=== PATIENT | male | born 1945 | race Caucasian/White ===

== ENCOUNTER → 2018-07-03 07:49 | Outpatient (CLI) | payer MEDICARE, SELFPAY ==
[2018-07-03 09:07] LABS: Cholesterol 175 mg/dL (200); High Density Lipoprotein 40 mg/dL; Triglycerides 115 mg/dL; Very Low Density Lipoprotein 23 mg/dL (5-40)
== END ==
PROVIDERS: Family Provider Preventive Medicine Occupational Medicine; PCP Preventive Medicine Occupational Medicine; Visit Provider Internal Medicine Cardiovascular Disease
DX: I25.10 Atherosclerotic heart disease of native coronary artery without angina pectoris (principal)
CPT/HCPCS: 36415; 80061

== ENCOUNTER → 2018-12-30 07:41 | Outpatient (CLI) | payer MEDICARE, SELFPAY ==
[2018-12-30 09:06] LABS: ALB/GLOB Ratio 1.1 RATIO (0.9-2.4); AST(SGOT) 17 U/L (15-37); Alanine Aminotransfer ALT/SGPT 12 U/L (16-61); Albumin, Serum 4.2 g/dL (3.2-5.0); Alkaline Phosphatase 92 U/L (45-117); Anion Gap 2 (5-15); BUN 27 mg/dL (7-18); BUN/Creat Ratio 19.6 RATIO (10-20); Calcium,Total 9.2 mg/dL (8.5-10.1); Chloride 104 mmol/L (98-107); Cholesterol 182 mg/dL (200); Creatinine, Serum 1.38 mg/dL (0.70-1.30); EST Glomerular Filtration Rate 54 mL/min (>60); Est Glom Filt Rate - Afr Amer 65 mL/min (>60); Globulin 3.8 g/dL (2.2-4.2); Glucose 95 mg/dL (74-106); High Density Lipoprotein 48 mg/dL; Potassium 3.9 mmol/L (3.5-5.1); Sodium Level 138 mmol/L (136-145); Triglycerides 123 mg/dL; Very Low Density Lipoprotein 25 mg/dL (5-40)
== END ==
PROVIDERS: Family Provider Preventive Medicine Occupational Medicine; PCP Preventive Medicine Occupational Medicine; Referring Provider Preventive Medicine Occupational Medicine; Visit Provider Preventive Medicine Occupational Medicine
DX: I10 Essential (primary) hypertension (principal); E78.5 Hyperlipidemia, unspecified
CPT/HCPCS: 36415; 80053; 80061

== ENCOUNTER → 2019-11-25 08:26 | Outpatient (CLI) | payer MEDICARE, SELFPAY ==
[2019-11-25 09:07] LABS: Hematocrit 47.3 % (40-54); Hemoglobin 15.2 g/dL (13.0-16.5); Mean Corp Hgb Conc 32.1 g/dL (32-36); Mean Corpuscular Hgb 27.9 pg (27.0-32.0); Mean Corpuscular Volume 86.9 fL (80-94); Mean Platelet Vol. 10.4 fl (6.2-12.0); Platelet Count 238 K/mm3 (150-450); RBC Distribution Width CV 13.2 % (11.6-14.6); RBC Distribution Width SD 41.5 fl (35.1-43.9); Red Blood Count 5.44 M/mm3 (4.6-6.2)
[2019-11-25 09:28] LABS: Microalbumin,Random Urine 40.5 mg/L (NO RANGE EST.)
[2019-11-25 09:36] LABS: ALB/GLOB Ratio 0.9 RATIO (0.9-2.4); AST(SGOT) 15 U/L (15-37); Alanine Aminotransfer ALT/SGPT 12 U/L (16-61); Albumin, Serum 3.7 g/dL (3.2-5.0); Alkaline Phosphatase 83 U/L (45-117); Anion Gap 4 (5-15); BUN 24 mg/dL (7-18); BUN/Creat Ratio 20.9 RATIO (10-20); Calcium,Total 9.3 mg/dL (8.5-10.1); Chloride 103 mmol/L (98-107); Cholesterol 165 mg/dL (200); Creatinine, Serum 1.15 mg/dL (0.70-1.30); EST Glomerular Filtration Rate 66 mL/min (>60); Est Glom Filt Rate - Afr Amer 80 mL/min (>60); Globulin 3.9 g/dL (2.2-4.2); Glucose 87 mg/dL (74-106); High Density Lipoprotein 48 mg/dL; PSA,Total - Annual Screen 8.83 ng/mL (0.00-4.00); Potassium 4.1 mmol/L (3.5-5.1); Protein, Total 7.6 g/dL (6.4-8.2); Sodium Level 140 mmol/L (136-145); Triglycerides 104 mg/dL; Very Low Density Lipoprotein 21 mg/dL (5-40)
== END ==
LOC: LAB.FUTURE 08:28 → LAB 08:32
PROVIDERS: PCP Preventive Medicine Occupational Medicine; Referring Provider Preventive Medicine Occupational Medicine; Visit Provider Preventive Medicine Occupational Medicine
DX: I10 Essential (primary) hypertension (principal); E78.2 Mixed hyperlipidemia; Z12.5 Encounter for screening for malignant neoplasm of prostate
CPT/HCPCS: 36415; 80053; 80061; 82043; 82570; 84153; 85027; G0103

== ENCOUNTER → 2019-12-12 08:38 | Outpatient (CLI) | payer MEDICARE, SELFPAY ==
[2019-12-12 10:14] LABS: PSA,Total- Diagnostic 5.71 ng/mL (0.0-4.0)
[2019-12-15 13:19] LABS: PSA, Free 1.52 ng/mL; PSA, Free % 27.6 % (.); PSA, Total Ultrasensitive 5.5 ng/mL (0.0-4.0)
== END ==
PROVIDERS: PCP Preventive Medicine Occupational Medicine; Referring Provider Preventive Medicine Occupational Medicine; Visit Provider Preventive Medicine Occupational Medicine
DX: R97.20 Elevated prostate specific antigen [PSA] (principal)
CPT/HCPCS: 36415; 84153; 84154

== ENCOUNTER → 2020-09-07 07:32 | Outpatient (CLI) | payer MEDICARE, SELFPAY | PROVIDERS: PCP Preventive Medicine Occupational Medicine; Referring Provider Preventive Medicine Occupational Medicine; Visit Provider Preventive Medicine Occupational Medicine | DX: Z00.00 Encounter for general adult medical examination without abnormal findings (principal) ==

== ENCOUNTER → 2020-09-08 07:24 | Outpatient (CLI) | payer MEDICARE, SELFPAY ==
[2020-09-08 08:32] LABS: Microalbumin,Random Urine 46.6 mg/L (NO RANGE EST.); Microalbumin:Creatinine Ratio 29.5 mg/g CRE (<30 mg/g CRE)
[2020-09-08 08:38] LABS: ALB/GLOB Ratio 1.1 RATIO (0.9-2.4); AST(SGOT) 16 U/L (15-37); Alanine Aminotransfer ALT/SGPT 14 U/L (16-61); Albumin, Serum 3.9 g/dL (3.2-5.0); Alkaline Phosphatase 87 U/L (45-117); Anion Gap 5 (5-15); BUN 28 mg/dL (7-18); BUN/Creat Ratio 22.6 RATIO (10-20); Calcium,Total 9.4 mg/dL (8.5-10.1); Chloride 107 mmol/L (98-107); Cholesterol 182 mg/dL (200); Creatinine, Serum 1.24 mg/dL (0.70-1.30); EST Glomerular Filtration Rate 61 mL/min (>60); Est Glom Filt Rate - Afr Amer 73 mL/min (>60); Globulin 3.6 g/dL (2.2-4.2); Glucose 90 mg/dL (74-106); High Density Lipoprotein 49 mg/dL; Potassium 3.6 mmol/L (3.5-5.1); Protein, Total 7.5 g/dL (6.4-8.2); Sodium Level 140 mmol/L (136-145); Triglycerides 76 mg/dL; Uric Acid 6.9 mg/dL (3.5-7.2); Very Low Density Lipoprotein 15 mg/dL (5-40)
[2020-09-10 16:08] LABS: PSA, Free 0.83 ng/mL; PSA, Free % 28.6 % (.); PSA, Total Ultrasensitive 2.9 ng/mL (0.0-4.0)
== END ==
PROVIDERS: PCP Preventive Medicine Occupational Medicine; Referring Provider Preventive Medicine Occupational Medicine; Visit Provider Preventive Medicine Occupational Medicine
DX: I10 Essential (primary) hypertension (principal); E78.2 Mixed hyperlipidemia; M10.9 Gout, unspecified; R97.20 Elevated prostate specific antigen [PSA]
CPT/HCPCS: 36415; 80053; 80061; 82043; 82570; 84153; 84154; 84550

== ENCOUNTER 2021-12-15 07:30 | Outpatient (CLI) | payer MEDICARE, SELFPAY ==
[2021-12-15 09:51] LABS: Microalbumin,Random Urine 64.7 mg/L (NO RANGE EST.)
[2021-12-15 10:01] LABS: ALB/GLOB Ratio 1.1 RATIO (0.9-2.4); AST(SGOT) 14 U/L (15-37); Alanine Aminotransfer ALT/SGPT 12 U/L (16-61); Albumin, Serum 3.9 g/dL (3.2-5.0); Alkaline Phosphatase 80 U/L (45-117); Anion Gap 4 (5-15); BUN 24 mg/dL (7-18); BUN/Creat Ratio 17.4 RATIO (10-20); Calcium,Total 9.9 mg/dL (8.5-10.1); Chloride 105 mmol/L (98-107); Cholesterol 164 mg/dL (200); Creatinine, Serum 1.38 mg/dL (0.70-1.30); EST Glomerular Filtration Rate 53 mL/min (>60); Est Glom Filt Rate - Afr Amer 65 mL/min (>60); Globulin 3.7 g/dL (2.2-4.2); Glucose 82 mg/dL (74-106); High Density Lipoprotein 52 mg/dL; PSA,Total - Annual Screen 4.21 ng/mL (0.00-4.00); Potassium 3.7 mmol/L (3.5-5.1); Protein, Total 7.6 g/dL (6.4-8.2); Sodium Level 140 mmol/L (136-145); Triglycerides 72 mg/dL; Uric Acid 8.1 mg/dL (3.5-7.2); Very Low Density Lipoprotein 14 mg/dL (5-40)
== END 2021-12-15 23:59 | disposition home or self-care (01) ==
LOC: LAB 07:32
PROVIDERS: PCP Preventive Medicine Occupational Medicine; Referring Provider Preventive Medicine Occupational Medicine; Visit Provider Preventive Medicine Occupational Medicine
DX: Z12.5 Encounter for screening for malignant neoplasm of prostate (principal); I10 Essential (primary) hypertension; E78.2 Mixed hyperlipidemia; M10.9 Gout, unspecified
CPT/HCPCS: 36415; 80053; 80061; 82043; 84153; 84550; G0103

== ENCOUNTER → 2023-04-26 | Outpatient (CLI) | payer MEDICARE, SELFPAY ==
[2023-04-26 08:35] LABS: Microalbumin,Random Urine 48.2 mg/L (NO RANGE EST.); Microalbumin:Creatinine Ratio 25.1 mg/g CRE (<30 mg/g CRE)
[2023-04-26 08:47] LABS: AST(SGOT) 17 U/L (15-37); Alanine Aminotransfer ALT/SGPT 9 U/L (16-61); Albumin, Serum 3.8 g/dL (3.2-5.0); Alkaline Phosphatase 94 U/L (45-117); Anion Gap 9 (5-15); BUN 32 mg/dL (7-18); BUN/Creat Ratio 23.4 RATIO (10-20); Calcium,Total 9.2 mg/dL (8.5-10.1); Chloride 107 mmol/L (98-107); Cholesterol 152 mg/dL (200); Creatinine, Serum 1.37 mg/dL (0.70-1.30); EST Glomerular Filtration Rate 54 mL/min (>60); Est Glom Filt Rate - Afr Amer 65 mL/min (>60); Globulin 3.8 g/dL (2.2-4.2); Glucose 91 mg/dL (74-106); High Density Lipoprotein 49 mg/dL; PSA,Total - Annual Screen 5.15 ng/mL (0.00-4.00); Potassium 3.7 mmol/L (3.5-5.1); Protein, Total 7.6 g/dL (6.4-8.2); Sodium Level 141 mmol/L (136-145); Triglycerides 75 mg/dL; Uric Acid 7.3 mg/dL (3.5-7.2); Very Low Density Lipoprotein 15 mg/dL (5-40)
== END | disposition home or self-care (01) ==
LOC: LAB 07:30
PROVIDERS: PCP Preventive Medicine Occupational Medicine; Referring Provider Preventive Medicine Occupational Medicine; Visit Provider Preventive Medicine Occupational Medicine
DX: I10 Essential (primary) hypertension (principal); Z12.5 Encounter for screening for malignant neoplasm of prostate; R97.20 Elevated prostate specific antigen [PSA]; M1A.3790 Chronic gout due to renal impairment, unspecified ankle and foot, without tophus (tophi); E78.2 Mixed hyperlipidemia
CPT/HCPCS: 36415; 80053; 80061; 82043; 82570; 84153; 84550; G0103

== ENCOUNTER → 2024-02-20 | Outpatient (CLI) | payer MEDICARE, SELFPAY ==
[2024-02-20 10:05] LABS: PSA,Total- Diagnostic 5.65 ng/mL (0.0-4.0)
== END | disposition home or self-care (01) ==
LOC: LAB 08:16
PROVIDERS: PCP Preventive Medicine Occupational Medicine; Referring Provider Preventive Medicine Occupational Medicine; Visit Provider Preventive Medicine Occupational Medicine
DX: R97.20 Elevated prostate specific antigen [PSA] (principal)
CPT/HCPCS: 36415; 84153

== ENCOUNTER 2024-11-02 12:06 | Emergency (ER) | payer MEDICARE, SELFPAY ==
[2024-11-02 12:07] VITALS: BP 138/94; PULSE 75; RESP 15; TEMP 36.4; O2SAT 98; BMI 31.5
[2024-11-02 12:10] VITALS: O2SAT 99
--- NOTE | 2024-11-02 12:23 | CT_ITS ---
EXAM: CT HEAD WITHOUT INTRAVENOUS CONTRAST CLINICAL INDICATION: head injury TECHNIQUE: Multiple axial images were obtained of the head without intravenous contrast. This CT exam was performed using one or more of the following dose reduction techniques: automated exposure control, adjustment of the mA and/or kV according to patient size, and/or use of iterative reconstruction technique. COMPARISON: No relevant prior studies available. FINDINGS: BRAIN AND EXTRA-AXIAL SPACES: No hemorrhage or mass effect. No acute ischemia. Areas of diminished white matter density noted within both cerebral hemispheres suggestive of chronic microvascular change. Prominence of the cortical sulci and ventricles related to volume loss change. Posterior fossa is normal. Basilar cisterns are patent. BONES/JOINTS: Normal calvarium. SOFT TISSUES: Posterior left parietal scalp swelling noted. SINUSES: No acute sinusitis. MASTOID AIR CELLS: Normal. Clear. CT/Brain/Head without Contrast IMPRESSION: 1. No acute intracranial abnormality. 2. Senescent changes. Electronically Signed: Shravan Tariq MD at 12:58 EST ,
--- NOTE | 2024-11-02 12:29 | EX.ED.DYSGE1 ---
HPI <KODAK Haley - Last Filed: 11/02/24 15:41> History of Present Illness Chief Complaint: Head Injury Narrative Narrative: Patient presenting today due to head injury that occurred this afternoon. He slipped on the ice outside and fell backwards, striking his head on the ground. He denies LOC. He is on Eliquis due to a history of atrial fibrillation. He reports a laceration to the back of his head. He denies neck pain or any other injury. He was able to get up after the fall and ambulate. PFSH <KODAK Haley - Last Filed: 11/02/24 15:41> [facility] Medical History Hypertension Atrial fibrillation Home Medications ?Medication ?Instructions ?Recorded ?Last Taken ?Type allopurinol 100 mg tablet 100 mg PO DAILYCM 04/08/15 04/15/15 History baclofen 20 mg tablet 20 mg PO TID 04/08/15 07/14/15 History 20 MG oxycodone-acetaminophen 7.5 mg-325 1 tab PO QHS 04/08/15 07/14/15 History mg tablet (Percocet) 1 TAB acetaminophen 325 mg tablet 325 mg PO DAILY 06/17/15 Unknown History (Tylenol) aspirin 81 mg chewable tablet 81 mg PO DAILY@0800 06/17/15 07/14/15 History 81 MG clonazepam 0.5 mg tablet 0.25 mg PO TID 06/17/15 Unknown History apixaban 2.5 mg tablet (Eliquis) 2.5 mg PO BID 11/02/24 Unknown History hydrochlorothiazide 25 mg tablet 25 mg PO DAILY 11/02/24 Unknown History Allergy/AdvReac Type Severity Reaction Status Date / Time Penicillins Allergy Unknown Unknown Verified 11/02/24 12:06 Surgical History Hx of heart artery stent Social History Smoking Status: Never smoker ROS <KODAK Haley - Last Filed: 11/02/24 15:41> ROS ED Constitutional Constitutional ED: Denies chills or fever(s) Cardiovascular Cardiovascular: Denies chest pain Respiratory/Chest Respiratory/Chest: Denies dyspnea Gastrointestinal Gastrointestinal: Denies abdominal pain, nausea or vomiting Musculoskeletal Musculoskeletal: Denies arthralgias, back pain, myalgias or neck pain Integumentary Reports laceration Neurologic Neurologic: Denies paresthesias EXAM <KODAK Haley - Last Filed: 11/02/24 15:41> Physical Exam Const Vital Signs: 11/02/24 12:07 11/02/24 12:10 11/02/24 13:06 Temperature 97.5 F L Temperature Source Oral Pulse Rate 75 63 Respiratory Rate 15 14 Respiratory Effort Normal Respiratory Depth Normal Respiratory Pattern Normal Blood Pressure 138/94 H 133/78 H Blood Pressure Mean 108 96 Pulse Ox 98 99 97 Oxygen Delivery Method Room Air Room Air Room Air 11/02/24 14:00 11/02/24 15:07 Temperature 97.8 F Temperature Source Pulse Rate 68 58 L Respiratory Rate 16 16 Respiratory Effort Respiratory Depth Respiratory Pattern Blood Pressure 130/77 H 116/68 Blood Pressure Mean 94 84 Pulse Ox 99 98 Oxygen Delivery Method Room Air Positive well nourished, well developed and no apparent distress General Appearance ED: well developed HEENT Reports normocephalic and head/scalp atraumatic HEENT Narrative: Hematoma to the back of the head with a small overlying laceration that is about 1 centimeter and full-thickness. Mouth ED: Yes moist mucous membranes normal Eyes PERRL and EOMs intact bilaterally Neck full ROM and supple General: Negative for tenderness Chest Wall inspection of chest normal Resp normal respiratory effort and clear to auscultation bilaterally Cardio regular rate and regular rhythm Back/Spine normal ROM and normal to inspection Extremity normal to inspection and full ROM Neuro oriented x3, CN's II-XII intact bilaterally, moves all extremities, no focal motor deficits and no sensory deficits noted Sensorium / Orientation: awake and alert Psych mental status grossly normal and thought process normal Skin Skin Narrative: Laceration to the back of the scalp, otherwise no lacerations or abrasions. Rashes: No rashes noted <Dr. Andrea Holland MD - Last Filed: 11/02/24 15:43> Physical Exam Const Vital Signs: 11/02/24 12:07 11/02/24 12:10 11/02/24 13:06 Temperature 97.5 F L Temperature Source Oral Pulse Rate 75 63 Respiratory Rate 15 14 Respiratory Effort Normal Respiratory Depth Normal Respiratory Pattern Normal Blood Pressure 138/94 H 133/78 H Blood Pressure Mean 108 96 Pulse Ox 98 99 97 Oxygen Delivery Method Room Air Room Air Room Air 11/02/24 14:00 11/02/24 15:07 Temperature 97.8 F Temperature Source Pulse Rate 68 58 L Respiratory Rate 16 16 Respiratory Effort Respiratory Depth Respiratory Pattern Blood Pressure 130/77 H 116/68 Blood Pressure Mean 94 84 Pulse Ox 99 98 Oxygen Delivery Method Room Air [facility] <KODAK Haley - Last Filed: 11/02/24 15:41> [facility] Narrative Medical decision making narrative: Patient presenting due to head injury that occurred shortly prior to arrival, he slipped on the ice and fell backwards, hitting his head on the ground. He is on Eliquis due to history of atrial fibrillation. CT will be obtained to rule out intracranial bleed. He does not have any neck pain or C-spine tenderness to indicate need for cervical spine imaging. Head CT showed no acute findings. He does have a large hematoma to the back of his head with a laceration that is actively bleeding. This was repaired by the attending ED physician with bella, see procedure note. The wound was then bandaged by nursing. He was observed for several hours to ensure there was no more bleeding. Wound care instructions were discussed, recommended he have bella removed in 10 to 14 days. Patient discharged home in stable condition. Radiography Diagnostic Testing: Clinical Impression(s) from Imaging Studies Brain CT 11/02/24 12:23 IMPRESSION: 1. No acute intracranial abnormality. 2. Senescent changes. Electronically Signed: Shravan Tariq MD at 12:58 EST , <Dr. Andrea Holland MD - Last Filed: 11/02/24 15:43> [facility] Narrative Medical decision making narrative: Patient presenting due to head injury that occurred shortly prior to arrival, he slipped on the ice and fell backwards, hitting his head on the ground. He is on Eliquis due to history of atrial fibrillation. CT will be obtained to rule out intracranial bleed. He does not have any neck pain or C-spine tenderness to indicate need for cervical spine imaging. Head CT showed no acute findings. He does have a large hematoma to the back of his head with a laceration that is actively bleeding. This was repaired by the attending ED physician with bella, see procedure note. The wound was then bandaged by nursing. He was observed for several hours to ensure there was no more bleeding. Wound care instructions were discussed, recommended he have bella removed in 10 to 14 days. Patient discharged home in stable condition. I have personally performed a face to face assessment of the patient and have reviewed the NIURKA Note. I performed a substantive portion of the visit including all aspects of the following. My whalen findings include: History is remarkable for mechanical fall. Patient slipped on ice. Hit the back of his head. Denies loss of conscious. Not amnestic. Nuys neck pain. Denies paresthesia, anesthesia or motor weakness. He denies headache. Eyes double vision blurred vision loss of vision. No trouble with speech or swallowing. Exam is patient has an occipital scalp laceration. There is a small arterial bleeder noted. There is no palpable depression. Is no clinical findings of basilar skull fracture. There is no posterior midline neck pain. He is alert orient x 3. Motor sensor intact. There is no clonus Babinski sign. There is no dysmetria. Medical Decision Making per both the [place] CT head rule and [place] rule imaging of the head is indicated. Imaging of the head reveals a extracranial hematoma. There is no evidence of subdural hematoma, epidural hematoma, traumatic subarachnoid hemorrhage or intraparenchymal contusion. Since patient has laceration that required repair and he was actively bleeding and saturated more than 1 dressing patient had total of 4 bella placed to close the occipital laceration. This is performed by me. Total length of laceration was 2.3 cm. Other additions or changes: CT of the head was interpreted by radiologist as negative. Patient was instructed to disc continued anticoagulant for 2 days and follow-up with his doctor to have bella removed in 10 days. Radiography Diagnostic Testing: Clinical Impression(s) from Imaging Studies Brain CT 11/02/24 12:23 IMPRESSION: 1. No acute intracranial abnormality. 2. Senescent changes. Electronically Signed: Shravan Tariq MD at 12:58 EST , Discharge Plan Triage Chief Complaint: Head Injury ED Midlevel Provider: Lee Ann Fisher ED Provider: Andrea Holland Dx/Rx/DC Orders Clinical Impression: Head injury, Chronic anticoagulation, Scalp hematoma, Laceration of scalp Instructions: ED Head Injury (Adult), ED Hematoma, ED Laceration Scalp Stitches or Bella Prescriptions: No Action allopurinol 100 MG tablet 100 mg PO DAILYCM Patient Comments: GOUT baclofen 20 MG tablet 20 mg PO TID Patient Comments: BACK SPASMS oxycodone-acetaminophen [Percocet] 1 EACH tablet 1 tab PO QHS Patient Comments: PAIN acetaminophen [Tylenol] 325 MG tablet 325 mg PO DAILY Patient Comments: PAIN aspirin 81 MG tablet,chewable 81 mg PO DAILY@0800 Patient Comments: HEART HEALTH clonazepam 0.5 MG tablet 0.25 mg PO TID Patient Comments: ANXIETY hydrochlorothiazide 25 mg tablet 25 mg PO DAILY Eliquis 2.5 mg tablet 2.5 mg PO BID Primary Care Provider: Phil Foote Referrals: Phil Foote DO [Primary Care Provider] - 10-14 Days suture removal Activity Restrictions/Additional Instructions: Hold Eliquis for 2 days. Bella removed in 10 to 14 days. Return for any worsening symptoms. Print Language: Kazakh Disposition Disposition: Home, Self Care Discharge Date/Time: 11/02/24 15:12
[2024-11-02 13:06] VITALS: BP 133/78; PULSE 63; RESP 14; O2SAT 97
[2024-11-02] MEDS: Acetaminophen 325 MG Tablet 650 MG PO (13:31)
[2024-11-02 14:00] VITALS: BP 130/77; PULSE 68; RESP 16; O2SAT 99
[2024-11-02 15:07] VITALS: BP 116/68; PULSE 58; RESP 16; TEMP 36.6; O2SAT 98
== END 2024-11-02 15:12 | disposition home or self-care (01) ==
LOC: ED 12:56
PROVIDERS: Emergency Provider Emergency Medicine; PCP Preventive Medicine Occupational Medicine; Visit Provider Emergency Medicine
DX: S01.01XA Laceration without foreign body of scalp, initial encounter (principal); I48.91 Unspecified atrial fibrillation; W00.0XXA Fall on same level due to ice and snow, initial encounter; I10 Essential (primary) hypertension; Z95.5 Presence of coronary angioplasty implant and graft; Z79.01 Long term (current) use of anticoagulants; Z79.82 Long term (current) use of aspirin; Z79.899 Other long term (current) drug therapy
CPT/HCPCS: 12001; 51702; 70450; 99283

== ENCOUNTER → 2024-11-27 | Outpatient (CLI) | payer MEDICARE, SELFPAY ==
[2024-11-27 09:01] LABS: Microalbumin,Random Urine 57.4 mg/L (NO RANGE EST.); Microalbumin:Creatinine Ratio 55.2 mg/g CRE (<30 mg/g CRE)
[2024-11-27 10:35] LABS: ALB/GLOB Ratio 1.1 RATIO (0.9-2.4); AST(SGOT) 15 U/L (15-37); Alanine Aminotransfer ALT/SGPT 10 U/L (16-61); Albumin, Serum 3.8 g/dL (3.2-5.0); Alkaline Phosphatase 87 U/L (45-117); Anion Gap 3 (5-15); BUN 25 mg/dL (7-18); BUN/Creat Ratio 20.3 RATIO (10-20); Calcium,Total 9.7 mg/dL (8.5-10.1); Chloride 106 mmol/L (98-107); Cholesterol 162 mg/dL (200); Creatinine, Serum 1.23 mg/dL (0.70-1.30); EST Glomerular Filtration Rate 61 mL/min (>60); Est Glom Filt Rate - Afr Amer 73 mL/min (>60); Globulin 3.6 g/dL (2.2-4.2); Glucose 85 mg/dL (74-106); High Density Lipoprotein 55 mg/dL; Protein, Total 7.4 g/dL (6.4-8.2); Sodium Level 140 mmol/L (136-145); Triglycerides 74 mg/dL; Uric Acid 6.1 mg/dL (3.5-7.2); Very Low Density Lipoprotein 15 mg/dL (5-40)
== END | disposition home or self-care (01) ==
LOC: LAB 07:42
PROVIDERS: PCP Preventive Medicine Occupational Medicine; Referring Provider Preventive Medicine Occupational Medicine; Visit Provider Preventive Medicine Occupational Medicine
DX: I10 Essential (primary) hypertension (principal); E78.2 Mixed hyperlipidemia; M1A.3790 Chronic gout due to renal impairment, unspecified ankle and foot, without tophus (tophi)
CPT/HCPCS: 36415; 80053; 80061; 82043; 82570; 84550

== ENCOUNTER → 2025-03-03 | Outpatient (CLI) | payer MEDICARE, SELFPAY ==
--- NOTE | 2025-03-03 12:34 | ECHOD_ITS ---
Reason For Study Reason For Study: CAD, SANDHU Procedure This was a 2D Doppler, Color Flow transthoracic echocardiogram. The study was technically difficult. Exam performed in department. Left Ventricle Normal LV size. Left ventricular systolic function is normal. The left ventricular ejection fraction is 60 %. No regional wall motion abnormalities noted. Right Ventricle Normal RV size. Normal systolic function. Atria The left atrium is moderately enlarged. The right atrium is mildly enlarged. Mitral Valve Normal mitral valve. Mild (1+) eccentric mitral valve insufficiency. Tricuspid Valve Normal tricuspid valve. Mild tricuspid valve insufficiency. Pulmonary artery systolic pressure is 27 mmHg. Aortic Valve Trisinus/trileaflet aortic valve. Mild focal aortic valve calcification. Peak aortic valve gradient 21 mmHg. Mean aortic valve gradient 10 mmHg. Pulmonic Valve Normal pulmonic valve. Great Vessels Normal aortic root. Pericardium/Pleural No pericardial effusion. MMode/2D Measurements & Calculations LVIDd: 3.4 cm IVSd: 1.2 cm LVOT diam: 2.3 cm LVIDs: 2.7 cm LVPWd: 0.93 cm LVOT area: 4.0 cm2 RVDd: 4.4 cm FS: 20.8 % Ao root diam: 3.6 cm LAV(MOD-bp): 93.7 ml LVAd ap4: 26.6 cm2 LAV(MOD-bp) Indexed: 48.6 ml/m2 LVLd ap4: 7.3 cm LAV(MOD-sp2): 77.0 ml EDV(MOD-sp4): 82.9 ml LAV(MOD-sp4): 97.6 ml EDV(sp4-el): 82.2 ml LVAs ap4: 15.9 cm2 LVLs ap4: 6.3 cm ESV(MOD-sp4): 35.4 ml ESV(sp4-el): 34.1 ml EF(MOD-sp4): 57.3 % EF(sp4-el): 58.5 % SV(MOD-sp4): 47.5 ml SV(sp4-el): 48.1 ml Ao sinus diam: 3.2 cm SI(MOD-sp4): 24.6 ml/m2 Ao ST Junction: 2.6 cm Aortic Valve Planimetry: 1.5 cm2 LA A4 area: 29.6 cm2 LA dimension(2D): 5.4 cm TAPSE: 2.2 cm RA A4 area: 23.2 cm2 Doppler Measurements & Calculations MV E max ramy: 100.0 cm/sec MV V2 max: 107.5 cm/sec Ao V2 max: 229.0 cm/sec MV max P.6 mmHg Ao max P.0 mmHg MV V2 mean: 60.1 cm/sec Ao V2 mean: 144.2 cm/sec MV mean P.7 mmHg Ao mean P.7 mmHg MV V2 VTI: 29.9 cm Ao V2 VTI: 44.1 cm MVA(VTI): 2.3 cm2 AV (velocity ratio): 0.40 GERRI(I,D): 1.6 cm2 GERRI(V,D): 1.6 cm2 LV V1 max: 89.2 cm/sec MR max ramy: 505.0 cm/sec SV(LVOT): 69.6 ml LV V1 max P.3 mmHg MR max P.0 mmHg LV V1 mean P.8 mmHg LV V1 mean: 61.7 cm/sec LV V1 VTI: 17.5 cm PA V2 max: 126.8 cm/sec TR max ramy: 249.4 cm/sec TR max P.9 mmHg ECHO/Echo Complete Interpretation Summary Normal LV size. Left ventricular systolic function is normal. The left ventricular ejection fraction is 60 %. Mild focal aortic valve calcification. Mean aortic valve gradient 10 mmHg. Ordering Physician: Nacho Musa Referring Physician: Nacho Musa Performed By: En Bullock RCS
== END | disposition home or self-care (01) ==
LOC: CVS 12:30
PROVIDERS: PCP Preventive Medicine Occupational Medicine; Referring Provider Internal Medicine Cardiovascular Disease; Visit Provider Internal Medicine Cardiovascular Disease
DX: I25.10 Atherosclerotic heart disease of native coronary artery without angina pectoris (principal); I48.20 Chronic atrial fibrillation, unspecified; I10 Essential (primary) hypertension
CPT/HCPCS: 93306

== ENCOUNTER → 2025-06-01 | Outpatient (CLI) | payer MEDICARE, SELFPAY ==
[2025-06-01 09:06] LABS: Hematocrit 44.1 % (40-54); Hemoglobin 13.9 g/dL (13.0-16.5); Mean Corp Hgb Conc 31.5 g/dL (32-36); Mean Corpuscular Volume 87.2 fL (80-94); Mean Platelet Vol. 11.8 fl (6.2-12.0); Platelet Count 162 K/mm3 (150-450); RBC Distribution Width CV 14.1 % (11.6-14.6); RBC Distribution Width SD 44.8 fl (35.1-43.9); Red Blood Count 5.06 M/mm3 (4.6-6.2); White Blood Count 7.2 K/mm3 (4.4-11.0)
[2025-06-01 09:33] LABS: Creatinine, Urine (random) 114.00 mg/dL (39.00-259.00); Microalbumin,Random Urine 23.4 mg/L (<20 mg/L)
[2025-06-01 09:41] LABS: Cholesterol 150 mg/dL (<=200); Low Density Lipoprotein Calc. 84 mg/dL; PSA,Total - Annual Screen 5.27 ng/mL (0.02-4.00); Triglycerides 91 mg/dL; Uric Acid 6.8 mg/dL (3.5-7.2); Very Low Density Lipoprotein 18 mg/dL (5-40); cholesterol:hdl ratio screen 3.16
[2025-06-01 09:47] LABS: AST(SGOT) 20 U/L (<=37); Alanine Aminotransfer ALT/SGPT < 5 U/L (<=46); Albumin, Serum 4.1 g/dL (3.4-4.8); Alkaline Phosphatase 90 U/L (40-129); Anion Gap 12 (5-15); BUN 31 mg/dL (4-19); BUN/Creat Ratio 24.0 RATIO (10-20); Calcium,Total 9.9 mg/dL (7.6-11.0); Carbon Dioxide 25.8 mmol/L (21.0-32.0); Chloride 105 mmol/L (98-108); Globulin 2.9 g/dL (2.2-4.2); Glucose 84 mg/dL (70-99); Potassium 4.0 mmol/L (3.3-5.1)
== END | disposition home or self-care (01) ==
LOC: LAB 08:10
PROVIDERS: PCP Student in an Organized Health Care Education/Training Program; Referring Provider Student in an Organized Health Care Education/Training Program; Visit Provider Student in an Organized Health Care Education/Training Program
DX: Z13.6 Encounter for screening for cardiovascular disorders (principal); Z12.5 Encounter for screening for malignant neoplasm of prostate; I10 Essential (primary) hypertension; M10.9 Gout, unspecified
CPT/HCPCS: 36415; 80053; 80061; 82043; 82570; 83036; 84153; 84550; 85027; G0103